=== PATIENT | female | born 1990 | race Caucasian/White ===

== ENCOUNTER 2017-07-06 09:33 | Day surgery (SDC) | payer OTHER ==
[2017-06-28 12:21] VITALS: BMI 20.5
[2017-07-06] MEDS ORDERED: BUPIVACAINE HCL/EPINEPHRINE/PF 30 ML VIAL IJ ONE (11:16)
[2017-07-06] MEDS ORDERED: DEXAMETHASONE SOD PHOSPHATE/PF 10 MG/ML SDV ONE (11:48)
[2017-07-06] MEDS ORDERED: ROPIVACAINE HCL 0.5% 30ML VIAL ONE (11:48)
[2017-07-06] MEDS ORDERED: MIDAZOLAM HCL 2 MG/2 ML SINGLE DOSE VIAL ONE (11:48)
--- NOTE | 2017-07-06 12:17 | HP ---
History & Physical Update - History History: No Change - Physical Physical: No Change - Assessment Assessment: No Change - Plan Plan: No Change
[2017-07-06] MEDS ORDERED: PROPOFOL 20 ML ONE (12:41)
[2017-07-06] MEDS ORDERED: ONDANSETRON 4 MG/2 ML VIAL ONE (12:51)
[2017-07-06] MEDS ORDERED: DEXAMETHASONE SOD PHOSPHATE 4 MG/1 ML VIAL ONE (12:51)
[2017-07-06] MEDS ORDERED: ceFAZolin SODIUM 1 GM VIAL ONE (12:51)
--- NOTE | 2017-07-06 13:59 | DS ---
Physical Examination Vital Signs: Vital Signs Temperature 98.1 F 07/06/17 10:02 Pulse Rate 64 07/06/17 10:02 Respiratory Rate 18 07/06/17 10:02 Blood Pressure 101/64 07/06/17 10:02 O2 Sat by Pulse Oximetry (%) 98 07/06/17 10:02 Discharge Summary Reason For Visit: LOOSE BIPARTITE PATELLA RIGHT KNEE Condition: Good - Instructions Diet, Activity, Other Instructions: Post Operative Instructions: Knee Dr Dhruv Ornelas 1. Pain following an knee surgery is variable. Some patients will have more pain than others. You have been provided with a prescription for medication that contains a narcotic. You are not allowed to drive while on this medication. Feel free to take medications such as Ibuprofen or Naprosyn in addition to the pain medicine if you do not have any problems with the NSAID class of medications. 2. You do not need to remove the bandage. You may shower if the bandage is firmly in place. You are not allowed to bathe or go swimming until the sutures are removed. 3. You are allowed to put all your weight on the leg and bend your knee. 4. Apply ice to the knee for 15 min every hour or so. You may continue this for as many days as you like. 5. Please call the office to schedule a visit to have your sutures removed. 6. If for any reason you believe you may have an infection or are concerned, please feel free to call me. I can be reached through our office number 24 hours a day. 7. Please call our office with any questions; we will review the surgical findings during your post operative visit. Disposition: HOME - Home Medications Comprehensive Discharge Medication List: Ambulatory Orders Aspirin Coated [Ecotrin -] 81 mg PO DAILY 06/28/17 Multivit-Min/Folic Acid/Biotin [Hair, Skin and Nails Caplet] 1 tab PO DAILY
--- NOTE | 2017-07-06 13:59 | OP ---
Operative Note - Note: Operative Date: 07/06/17 Pre-Operative Diagnosis: right knee bipartite patella Operation: right knee debridement of bipartite patella and hydroxy appetite deposition Post-Operative Diagnosis: Same as Pre-op Surgeon: Dhruv Ornelas Group Account Director: Betty Nicole Anesthesia: General Operative Report Dictated: Yes
[2017-07-06] MEDS ORDERED: BUPIVACAINE 0.25% /EPI 1:200,000 10 ML VIAL INF ONE (14:05)
--- NOTE | 2017-07-06 14:23 | SURG ---
Surgery Emulsion Coater Note Emulsion Coater: Betty Nicole PA-C Date of Service: 07/06/17 Diagnosis: Right knee bipartite patella Procedure: right knee debridement of bipartite patella and hydroxy appetite deposition I was present for the entirety of the operative procedure. For further detail, please refer to operative report. Visit type - Case Type Case Type: Scheduled Admission - Emergency Emergency Visit: No - New patient This patient is new to me today: Yes Date on this admission: 07/06/17
[2017-07-06] MEDS ORDERED: oxyCODONE HCL 5 MG TABLET PO PRN (14:27)
[2017-07-06] MEDS ORDERED: LACTATED RINGERS SOLUTION 1,000 ML IV SCH (14:30)
[2017-07-06] MEDS ORDERED: oxyCODONE HCL 5 MG TABLET ONE (15:10)
[2017-07-06 16:07] VITALS: BP 124/74; PULSE 68; TEMP 98
--- NOTE | 2017-07-10 14:00 | PATH ---
Surgical Pathology Report Patient Name: JESSICA CONDE Med. Rec. #: [id number] /Age/Gender: 1990 (Age: 26) / F Account: [id number] Location: [facility] AMBULATORY Taken: 07/06/2017 Received: 07/06/2017 Reported: 07/10/2017 Physicians: Dhruv Ornelas M.D. Specimen(s) Received RIGHT KNEE TISSUE Clinical History Loose bipartite patella right knee Final Diagnosis RIGHT KNEE TISSUE, EXCISION: DENSE EOSINOPHILIC MATERIAL. NO INTACT CELLULAR MATERIAL IDENTIFIED. NO URIC ACID CRYSTALS IDENTIFIED WITH STANDARD HEMATOXYLIN AND EOSIN STAIN, OR SH[place]HAM STAIN. Electronically Signed Sesar Moody M.D. Gross Description Received in formalin labeled "right knee tissue," is a 0.3 x 0.3 x 0.1 cm aggregate of zamora-brown tissue fragments. The formalin is filtered and the specimen is entirely submitted in one cassette. 07/06/201707/06/2017
== END 2017-07-06 16:17 | disposition home or self-care (01) ==
LOC: FASU 09:33
PROVIDERS: ATTEND Orthopaedic Surgery
PROC: 0QBD0ZZ Excision of Right Patella, Open Approach (ICD-10-PCS; principal; 2017-07-06 11:30)
DX: Q74.1 Congenital malformation of knee (principal); M25.861 Other specified joint disorders, right knee; M65.261 Calcific tendinitis, right lower leg
CPT/HCPCS: 73560-TC-RT; 84703; 87070; 87205; 88304-TC; 88313-TC; 94760